=== PATIENT | male | born 1950 | race Caucasian/White ===

== ENCOUNTER 2023-03-30 16:00 | Outpatient (CLI) | payer MEDICARE, BC | END 2023-03-30 16:01 | disposition home or self-care (01) | LOC: SLEEPLAB 16:00 | PROVIDERS: ATTEND Internal Medicine Critical Care Medicine | DX: G47.33 Obstructive sleep apnea (adult) (pediatric) (principal); R09.89 Other specified symptoms and signs involving the circulatory and respiratory systems; K21.9 Gastro-esophageal reflux disease without esophagitis; R06.83 Snoring; Z68.23 Body mass index [BMI] 23.0-23.9, adult; G47.31 Primary central sleep apnea | CPT/HCPCS: 95800 ==

== ENCOUNTER → 2023-04-23 | Outpatient (CLI) | payer MEDICARE, BC | LOC: SLEEPLAB 17:00 | PROVIDERS: ATTEND Internal Medicine Critical Care Medicine | DX: G47.33 Obstructive sleep apnea (adult) (pediatric) (principal); K21.9 Gastro-esophageal reflux disease without esophagitis; R06.83 Snoring; D72.819 Decreased white blood cell count, unspecified; I34.1 Nonrheumatic mitral (valve) prolapse; K57.90 Diverticulosis of intestine, part unspecified, without perforation or abscess without bleeding; J45.909 Unspecified asthma, uncomplicated; N48.6 Induration penis plastica; H33.319 Horseshoe tear of retina without detachment, unspecified eye; M41.9 Scoliosis, unspecified | CPT/HCPCS: 95811 ==

== ENCOUNTER 2023-08-28 09:31 | Outpatient (CLI) | payer MEDICARE, BC | END 2023-08-28 09:32 | disposition home or self-care (01) | LOC: SCSRAD 09:31 | PROVIDERS: ATTEND Nurse Practitioner Family | DX: M25.551 Pain in right hip (principal); M16.11 Unilateral primary osteoarthritis, right hip; M25.751 Osteophyte, right hip; M46.1 Sacroiliitis, not elsewhere classified; M25.78 Osteophyte, vertebrae ==